=== PATIENT | male | born 1970 | race Caucasian/White ===

== ENCOUNTER → 2018-10-25 | Outpatient (CLI) | payer SELFPAY ==
[~2018-10-25] MED LIST: DIV500ER PO; GABA-549 PO; IBUP600T22 PO; LISI20TA29 PO; MIRT-22 PO; NALT50TA15 PO; RIVA15TA PO; RIVA20TA PO
== END ==
LOC: AMB 04:32
PROVIDERS: ATTEND Nurse Practitioner
DX: R41.82 Altered mental status, unspecified (principal)
CPT/HCPCS: A0425; A0426